=== PATIENT | female | born 2000 | race Caucasian/White ===

== ENCOUNTER 2018-01-21 00:23 | Emergency (ER) | payer OTHER ==
[~2018-01-21] VITALS: Ht 162.6 cm; Wt 59.4 kg
[2018-01-21 00:30] VITALS: TEMP 36.4; Ht 162.6 cm; Wt 59.4 kg
[2018-01-21 00:33] VITALS: O2SAT 100
[2018-01-21] MEDS ORDERED: anxiety med PO (00:37)
--- NOTE | 2018-01-21 00:52 | EMERGENCY ROOM VISIT NOTE ---
History Report prepared by Elleniblino: Harpal Mehta Under the Supervision of: Dr. Francesca Wright D.O. First contact with patient: 00:38 Chief Complaint: ALCOHOL OVERDOSE Stated Complaint: ALCOHOL OVERDOSE Nursing Triage Summary: PT unresponsive in stairwell of apt, found by EMS. PT awoke to verbal stimuli, confused and noted to be intoxicated. upon arrival PT oriented to person, place and time, sleepy with slurred speech. cooperative. History of Present Illness HPI is limited due to altered mental state secondary to alcohol intoxication. The patient is a 17 year old female who presents to the Emergency Room via EMS due to a recent alcohol overdose. EMS states the patient was found passed in a stairwell unresponsive and not answering questions. Patient denies any falls or injuries. Patient states she did not drink a lot of alcohol in high school. Past medical history includes anxiety. She states she is a freshman at [employer] from [place]. She states her parents dropped her off at school and left yesterday. Source of History: patient History Limited By: AMS (Alcohol intoxication) Onset: Recent Review of Systems See HPI for pertinent positives & negatives. A total of 10 systems reviewed and were otherwise negative. Past Medical & Surgical Medical Problems: (1) Anxiety Family History Family history is limited due to altered mental state secondary to alcohol intoxication. Social History Smoking Status: Never Smoker Alcohol Use: occasionally Occupation Status: [employer] student Current/Historical Medications Scheduled [anxiety med], 1 DOSE PO DIRECTED Allergies Coded Allergies: No Known Allergies (Unverified , 01/21/18) Physical Exam Vital Signs Date Time Temp Pulse Resp B/P (MAP) Pulse Ox O2 Delivery O2 Flow Rate FiO2 01/21/18 06:54 116 18 93/53 99 01/21/18 05:56 77 01/21/18 05:00 78 18 94/44 96 Room Air 01/21/18 03:00 97 18 84/40 98 Room Air 01/21/18 02:01 76 18 87/31 98 Room Air 01/21/18 01:10 81 01/21/18 00:33 100 Room Air 01/21/18 00:30 36.4 99 18 119/62 100 Room Air Physical Exam General: Patient is tearful and smells of alcohol. HEENT: Head - normocephalic and atraumatic Pupils are 4mm, equal, round, and reactive to light. Extraocular eye muscles are intact, and sclera are anicteric. Nose - moist nasal mucosa without discharge. Mouth - moist buccal mucosa. Oropharynx is nonerythematous and there is no tonsillar exudate or edema noted. Neck: Supple; no JVD, nuchal rigidity, cervical lymphadenopathy. Heart: Tachycardic rate and rhythm. There is a normal S1 and S2 with no murmurs , clicks, or gallops appreciated. Lungs: Clear to auscultation bilaterally with no wheezes, rales, or rhonchi. Abdomen: Soft, completely nontender, nondistended, with good bowel sounds. There are no palpable pulsatile masses or hepatosplenomegaly. There is no guarding, rigidity, or rebound noted. Extremities: No evidence of cyanosis, clubbing, or edema. There are easily palpable peripheral pulses. Skin: warm and dry with good turgor and no rashes. Medical Decision & Procedures Laboratory Results 01/21/18 00:59 Test 01/21/18 00:59 Anion Gap 15.0 mmol/L (3-11) Est Creatinine Clear Calc Drug Dose 73.8 ml/min Estimated GFR () 88.2 Estimated GFR (Non- 76.1 BUN/Creatinine Ratio 20.0 (10-20) Calcium Level 8.4 mg/dl (8.5-10.1) Ethyl Alcohol mg/dL 254.0 mg/dl (0-3) Laboratory results per my review. ED Course 0040: Past medical records reviewed. The patient was evaluated in room B11B. A complete history and physical exam was performed. The patient was placed in the prone position to avoid aspiration. They were observed on the rn cardiac and pulse oximeter. Labs were drawn as above 0244: I reassessed the patient. She is sleeping and hemodynamically stable. 0544: I reevaluated the patient. She is sleeping and hemodynamically stable. 0640: Upon reevaluation, the patient is awoke and resting comfortably. I discussed the hazards of excessive alcohol consumption. I discussed findings and results with her. She verbalized agreement of the treatment plan. She was discharged home. Medical Decision The patient is a 17 year old female who presents to the ED due to a recent alcohol overdose. Differential diagnosis includes alcohol overdose, drug intoxication, hypoglycemia, and head injury. Lab results show alcohol = 254, BUN = 21, creatinine = 1.0, and glucose = 96. The patient was brought to the emergency department after consuming too much alcohol. There were no obvious signs of trauma or complaints of pain. They were observed closely throughout the night and remained stable while here in the ER. The patient was allowed time to sober up prior to discharge. I had a conversation with the patient about the hazards of such excessive alcohol use. Medication Reconcilliation Current Medication List: was personally reviewed by me Blood Pressure Screening Patient's blood pressure: Normal blood pressure Blood pressure disposition: Did not require urgent referral Impression Primary Impression: Alcohol overdose Scribe Attestation The scribe's documentation has been prepared under my direction and personally reviewed by me in its entirety. I confirm that the note above accurately reflects all work, treatment, procedures, and medical decision making performed by me. Departure Information Dispostion Home / Self-Care Forms HOME CARE DOCUMENTATION FORM, IMPORTANT VISIT INFORMATION Patient Instructions ED Overdose Alcohol, [facility]: [employer] Students and Alcohol Related Visits, My [facility] Additional Instructions Avoid such excessive alcohol use in the future. Tylenol 650 mg every 6 hours for headache. Drink plenty of fluids and take a bland diet today. Return to the emergency department for worsening symptoms or any medical concerns. Problem Qualifiers Primary Impression: Alcohol overdose Encounter type: initial encounter Injury intent: accidental or unintentional Qualified Codes: T51.91XA - Toxic effect of unspecified alcohol , accidental (unintentional), initial encounter
[2018-01-21 01:42] LABS: CALCIUM 8.4 mg/dl (8.5-10.1); CREATININE 1.06 mg/dl (0.60-1.20); POTASSIUM 3.5 mmol/L (3.5-5.1)
[2018-01-21 06:54] VITALS: BP 93/53; PULSE 116; O2SAT 99
== END 2018-01-21 06:56 | disposition home or self-care (01) ==
LOC: C.EDB 00:26
DX: T51.0X1A Toxic effect of ethanol, accidental (unintentional), initial encounter (principal); Y90.8 Blood alcohol level of 240 mg/100 ml or more; F41.9 Anxiety disorder, unspecified